=== PATIENT | male | born 1995 | race Caucasian/White ===

== ENCOUNTER 2020-05-15 18:39 | Emergency (ER) | payer OTHER ==
[~2020-05-15] VITALS: Ht 182.9 cm; Wt 65.8 kg
[2020-05-15] MEDS ORDERED: EPIDIOLEX100 MG/1 M (19:31)
[2020-05-15] MEDS ORDERED: LIDEX (19:31)
== END 2020-05-15 20:43 | disposition home or self-care (01) ==
LOC: ER 18:39
DX: L30.8 Other specified dermatitis (principal)